=== PATIENT | male | born 1955 | race Caucasian/White ===

== ENCOUNTER → 2019-07-12 14:10 | Outpatient (BNVA) | payer OTHER, SELFPAY | PROVIDERS: Family Provider Family Medicine; PCP Family Medicine; Visit Provider Nurse Practitioner | DX: F33.2 Major depressive disorder, recurrent severe without psychotic features (principal) | CPT/HCPCS: 99213 ==

== ENCOUNTER → 2020-01-03 09:33 | Outpatient (BNVA) | payer OTHER, SELFPAY | PROVIDERS: Family Provider Family Medicine; PCP Family Medicine; Visit Provider Nurse Practitioner | DX: F33.2 Major depressive disorder, recurrent severe without psychotic features (principal) | CPT/HCPCS: 99213 ==

== ENCOUNTER 2020-02-21 20:22 | Observation (INO) | payer OTHER, MEDICARE, SELFPAY ==
[2020-02-21 20:42] VITALS: BP 124/76; PULSE 86; RESP 18; TEMP 36.8; O2SAT 100; BMI 30.8
--- NOTE | 2020-02-21 20:50 | ECG_ITS ---
[facility] Test Date: 2020-02-21 Pat Name: Yue Goddard Department: Room: Gender: Male Cloud Developer: : 1955 Requested By: Faye Gandhi Order Number: [id number] Mitesh MD: Blaine Longo M.D. Measurements Intervals [place] Rate: 89 P: 10 [place]: 160 QRS: 73 QRSD: 107 T: -34 QT: 337 QTc: 411 Interpretive Statements SINUS RHYTHM ST DEVIATION AND MODERATE T-WAVE ABNORMALITY, CONSIDER ANTEROLATERAL ISCHEMIA [-0.1+ mV T WAVE IN V3-V6] Compared to ECG 06/20/2015 10:46:58 Intraventricular conduction delay no longer present T-wave abnormality still present Possible ischemia still present Electronically Signed On 02-22-2020 20:50:27 CDT by Blaine Longo M.D. [id number]
[2020-02-21] MEDS: sodium chloride 0.9% 500 ML 999 ML IV (21:10)
[2020-02-21 21:13] VITALS: BP 112/71; PULSE 77; RESP 18; O2SAT 97
[2020-02-21 21:16] LABS: Basophils # 0.1 10^3/uL (0.0-0.1); Basophils % 0.6 %; Eosinophils # 0.3 10^3/uL (0.0-0.8); Eosinophils % 4.2 %; Hemoglobin 14.8 g/dL (11.7-16.6); Lymphocytes # 1.2 10^3/uL (0.8-4.8); Lymphocytes % 14.1 %; Mean Corpuscular HGB Conc 34.4 g/dL (30.0-36.0); Mean Corpuscular Hemoglobin 32.2 pg (28.0-34.0); Mean Corpuscular Volume 93.5 fL (80-94); Mean Platelet Volume 9.7 fL (7.4-10.4); Monocytes # 0.8 10^3/uL (0.2-0.9); Monocytes % 9.2 %; Neutrophils # 5.83 10^3/uL (1.8-7.7); Neutrophils % 71.7 %; Nucleated Red Blood Cells % 0 %; Platelet Count 164 10^3/cmm (130-400); Red Cell Distribution Width 13.1 % (12.1-15.1); White Blood Count 8.1 10^3/uL (4.0-10.0)
[2020-02-21] MEDS: nitroglycerin 0.4 mg sublingual Tablet SUBLINGUAL ×2 (21:21→22:05)
[2020-02-21] MEDS: aspirin 325 mg Tablet PO (21:23)
[2020-02-21 21:30] VITALS: BP 122/67; PULSE 71; RESP 24; O2SAT 96
[2020-02-21 21:30] LABS: Alanine Aminotransferase 15 U/L (0-41); Albumin Level 4.2 g/dL (3.5-5.2); Alkaline Phosphatase 79 IU/L (40-130); Anion Gap 12.9 (5-19); Aspartate Amino Transferase 13 U/L (0-40); Blood Urea Nitrogen 18 mg/dL (8-23); Calcium 8.5 mg/dL (8.5-10.5); Carbon Dioxide 21 mmol/L (22-29); Chloride 105 mmol/L (98-107); Globulin 1.9 g/dL (1.3-4.6); Glomerular Filtration Rate 28.8 mL/min (90-130); Glucose 117 mg/dL (65-115); Lipase 53 U/L (13-60); Osmolality Calculated 283 mOsm/kg (285-295); Potassium 3.9 mmol/L (3.5-5.1); Sodium 135 mmol/L (136-145); Total Bilirubin 0.3 mg/dL (0.15-1.2); Total Protein 6.1 g/dL (6.6-8.7)
[2020-02-21 21:32] LABS: Troponin(5th) Baseline 8 ng/L (0-15)
[2020-02-21 21:45] LABS: INR 0.98 (0.8-1.2)
[2020-02-21 21:48] LABS: D Dimer 1.69 ug/mIFEU (0-0.59)
[2020-02-21] MEDS: nitroglycerin 0.4 mg sublingual Tablet (22:11)
--- NOTE | 2020-02-21 22:14 | XRR_ITS ---
PROCEDURE INFORMATION: Exam: XR Chest, 1 View Exam date and time: 02/21/2020 10:28 PM Age: 65 years old Clinical indication: Chest pain; Type not specified TECHNIQUE: Imaging protocol: XR of the chest Views: 1 view. COMPARISON: CR Chest 2 views* [id number] 06/20/2015 10:58 AM FINDINGS: Lungs: No lung consolidation or pulmonary edema. Pleural space: No pleural effusion or pneumothorax. Heart/Mediastinum: The cardiac silhouette is not enlarged. The mediastinal contours are normal. Bones/joints: No acute osseous abnormality. XR/XR chest 1V portable [id number] IMPRESSION: No acute abnormality.
[2020-02-21] MEDS: ondansetron 2 mg/ML SDV 2 mL 4 MG IVP (22:15)
[2020-02-21 22:18] VITALS: RESP 16; O2SAT 95
[2020-02-21] MEDS: morphine 4 mg/mL SDV 1 mL IVP (22:18)
[2020-02-21 22:19] VITALS: BP 120/74; PULSE 77; RESP 19; O2SAT 98
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
--- NOTE | 2020-02-21 22:31 | NMR_ITS ---
PROCEDURE INFORMATION: Exam: PR Lung Ventilation and Perfusion Imaging Exam date and time: 02/21/2020 11:21 PM Age: 65 years old Clinical indication: Pain and abnormal findings; Abnormal diagnostic tests; Elevated d-dimer; Left-sided chest pain; Additional info: Chest pain, positive d-dimer TECHNIQUE: Imaging protocol: Nuclear pulmonary ventilation with aerosol or gas was performed followed by perfusion. Views: Ventilation acquired with multiple projections. Perfusion acquired with multiple projections. Radiopharmaceutical: 32.7 mCi DTPA Aersol (Tc-99m DTPA), Inhalation. 5.1 mCi Tc-99m MAA, IV. COMPARISON: CR XR chest 1V portable [id number] 02/21/2020 10:17 PM FINDINGS: Ventilation: No ventilation defects. Perfusion: No perfusion defects. PR/PR pul vent and perfus* [id number] IMPRESSION: PE negative.
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
[2020-02-21 22:42] VITALS: RESP 16; O2SAT 96
[2020-02-21] MEDS: HYDROmorphone 1 mg/mL INJ 1 mL IVP (22:42)
--- NOTE | 2020-02-21 22:50 | ECG_ITS ---
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 Measurements Intervals [place] Rate: 82 P: 17 [place]: 179 QRS: 66 QRSD: 113 T: -81 QT: 383 QTc: 449 Interpretive Statements SINUS RHYTHM MODERATE INTRAVENTRICULAR CONDUCTION DELAY [110+ ms QRS DURATION] ST DEVIATION AND MODERATE T-WAVE ABNORMALITY, CONSIDER ANTEROLATERAL ISCHEMIA [-0.1+ mV T WAVE IN V3-V6] Compared to ECG 02/21/2020 20:41:36 Intraventricular conduction delay now present T-wave abnormality still present Possible ischemia still present Electronically Signed On 02-22-2020 21:39:06 CDT by Blaine Longo M.D. [id number]
[2020-02-21 23:11] LABS: C Reactive Protein 18.8 mg/L (0.0-4.9)
[2020-02-22] VITALS (15 sets, daily range): BP systolic 95–118; BP diastolic 51–71; PULSE 63–77; RESP 12–24; TEMP 36.6–37.3; O2SAT 93–99
[2020-02-22 00:07] LABS: Erythrocyte Sedimentation Rate 12 mm/hr (0-10)
--- NOTE | 2020-02-22 00:41 | PM.HP ---
Providers/Chief Complaint Primary Care Provider: Harley Lewis DO Chief Complaint: sob, cp History of Present Illness Yue Goddard is a 65 year old male nonobstructive CAD, hypertension, hyperlipidemia, aortic regurg, diastolic dysfunction, atypical migraines (passing out spells), chronic tinnitus, who presents to [facility] due to complaints of chest pain. 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 Denies any recent strenuous physical activity or heavy lifting. At roughly 7 PM patient patient was in his recliner, when he developed substernal chest pain, had sharp and dull features, radiating to the back, radiating up in the left neck, radiating into the left shoulder, associate with shortness of breath, lightheadedness, nausea, he says that the pain is slowly and gradually worsened, such that he called his and told her that he needs to go immediately to the emergency room, patient did take a couple of nitroglycerin, without relief, he did get nitroglycerin in the ER and with did not provide any relief, pain improved with Dilaudid and morphine. Currently states that he still has some mild degree of anterior chest pain, radiating to his neck, shoulder and back, mild currently, but slowly creeping back. States that he is never had chest pain like this before. Is a current smoker, his history of hypertension, does have a family history of CAD Review of Systems Const: Denies: fever(s), chills, fatigue or malaise Eyes: Denies: change in vision or blurry vision ENMT: Denies: nasal congestion Card: Reports: chest pain and orthopnea Resp: Reports: dyspnea; Denies: productive cough, non-productive cough or wheezing GI: Denies: abdominal pain, nausea, vomiting, hematemesis, diarrhea, constipation, hematochezia or melena : Denies: flank pain, difficulty urinating, dysuria or urinary frequency Musc: Denies: neck pain or back pain Skin/Breast: Denies: rash Neuro: Denies: headache(s), dizziness or vertigo Psych: Denies: anxiety or depression Endo: Denies: polyuria or polydipsia Medications/Allergies Home Medications Medication Instructions Recorded Confirmed Last Taken Type atorvastatin 20 mg tablet 20 mg PO DAILY 07/12/19 07/28/19 Unknown History aspirin 81 mg tablet,delayed 81 mg PO DAILY 07/24/19 07/28/19 Unknown History release isosorbide mononitrate 30 mg 30 mg PO DAILY 07/24/19 07/28/19 Unknown History tablet,extended release 24 hr magnesium 250 mg tablet 250 mg PO DAILY 07/24/19 07/28/19 Unknown History metoprolol tartrate 25 mg tablet 25 mg PO DAILY 07/24/19 07/28/19 Unknown History multivitamin 1 tab PO DAILY 07/24/19 07/28/19 Unknown History naproxen sodium 220 mg tablet 220 mg PO Q12H 07/24/19 07/28/19 Unknown History nitroglycerin 0.4 mg sublingual 0.4 mg SUBLINGUAL Q5M PRN 07/24/19 07/28/19 Unknown History tablet omega-3 fatty acids 1,000 mg 1,000 mg PO DAILY 07/24/19 07/28/19 Unknown History capsule topiramate 50 mg tablet 50 mg PO TID tab 07/24/19 07/28/19 Unknown History hydroxyzine HCl 50 mg tablet 50 mg PO BID #180 tab 01/03/20 01/03/20 Unknown Rx sertraline 50 mg tablet 50 mg PO DAILY #90 tab 01/03/20 01/03/20 Unknown Rx trazodone 150 mg tablet 150 mg PO .at bed #90 tab 01/03/20 01/03/20 Unknown Rx Allergies Allergy/AdvReac Type Severity Reaction Status Date / Time No Known Allergies Allergy Verified 02/21/20 20:53 PFSH Acute PFSH: Medical History Abdominal aortic aneurysm Anxiety Aortic ectasia, abdominal Aortic regurgitation ASHD (arteriosclerotic heart disease) Carotid artery stenosis Hyperlipidemia Hypertension Major depressive disorder, recurrent severe without psychotic features Migraine Surgical History History of ear surgery History of elbow surgery History of shoulder surgery History of total hip replacement S/P foot surgery, right Family History Other CAD (coronary artery disease) Diabetes Lung disease Stroke Social History Smoking and tobacco status: current every day smoker cigarettes Smoking risk assessment/counseling performed?: Yes Tobacco counseling given: counseling >3 minutes Alcohol intake: never Vitals/I&O/Wt Last Vital Signs Temp 98.2 F 02/21/20 20:42 Pulse 77 02/21/20 22:19 Resp 16 02/21/20 22:42 BP 120/74 02/21/20 22:19 Pulse Ox 96 02/21/20 22:42 Weight last 48 hrs Weight 108.862 kg Physical Exam Const: COMMON NORMALS: no acute distress and patient oriented x3 GENERAL APPEARANCE: cooperative and comfortable HENMT: COMMON NORMALS: normocephalic HEAD & SCALP: normocephalic Eye: COMMON NORMALS: Equal, round and reactive pupils present and EOMs intact bilaterally GENERAL EYE: appearance normal, both eyes and all related structures PUPIL: Yes Equal, round and reactive pupils present Neck/C-Spine: COMMON NORMALS: full ROM, no lymphadenopathy, no JVD and Thyroid normal THYROID: Thyroid normal Lymph: LYMPHATIC: no lymphadenopathy noted Resp: COMMON NORMALS: normal respiratory effort, No retractions, No use of accessory muscles and clear to auscultation bilaterally AUSCULTATION: clear to auscultation bilaterally Cardio: COMMON NORMALS: no JVD, regular rate, regular rhythm, S1 normal heart sound present, S2 normal heart sound present, No gallops present (Cardio), No clicks present (Cardio) and No murmurs present (Cardio) RATE: regular rate RHYTHM: regular rhythm HEART SOUNDS: S1 normal heart sound present and S2 normal heart sound present GI: COMMON NORMALS: Normal to inspection, nondistended, normoactive bowel sounds present, Soft to palpation, non-tender and No hepatosplenomegaly present PALPATION: Yes Soft to palpation and Yes No hepatosplenomegaly present Extremity: COMMON NORMALS: normal to inspection, full ROM and no pedal edema Neuro: COMMON NORMALS: patient oriented x3, CN's II-XII intact bilaterally, moves all extremities and no focal motor deficits Psych: COMMON NORMALS: mental status grossly normal, Normal thought process present and cooperative THOUGHT PROCESS: Normal thought process present Data : 02/21/20 21:08 02/21/20 21:08 A&P Assessment and plan (1) Unstable angina: -Typical chest pain features, chest pain radiating to the left arm, left neck, to the back -EKG does show mild T wave inversions in anterior chest leads -Creatinine is 2.3 -Baseline troponin 8 -Currently no CSU beds, cannot get a nitro drip on the floors Plan: -Admit to [facility] general floor with telemetry -Nitro inch paste -Dilaudid for pain -Aspirin 81 mg daily, atorvastatin 40 mg daily, Coreg 3.125 twice daily -Monitor for chest pain, telemetry monitoring, serial EKGs, serial troponins -If chest pain persist or suddenly worsens will consult cardiology for cardiac catheterization -N.p.o. midnight for cardiac stress test this morning -Full code -Lovenox for DVT prophylaxis Status: Acute (2) Abdominal aortic aneurysm: Status: Acute Qualifiers: Presence of rupture: without rupture Qualified Code(s): I71.4 - Abdominal aortic aneurysm, without rupture (3) ASHD (arteriosclerotic heart disease): Status: Acute (4) Hypertension: Status: Acute Qualifiers: Hypertension type: essential hypertension Qualified Code(s): I10 - Essential (primary) hypertension (5) Hyperlipidemia: Status: Acute Qualifiers: Hyperlipidemia type: mixed hyperlipidemia Qualified Code(s): E78.2 - Mixed hyperlipidemia (6) Aortic regurgitation: Status: Acute Qualifiers: Cardiac valve disease etiology: nonrheumatic Qualified Code(s): I35.1 - Nonrheumatic aortic (valve) insufficiency (7) ISI (acute kidney injury): -He admits to naproxen use daily at bedtime for pain -Hold naproxen, gentle IV hydration Status: Acute Attestations Medical Necessity Statement*: Patient requires hospitalization, outpatient with observation, for chest pain Coding Level of Care Code 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
[2020-02-22] MEDS: nitroglycerin 1 gm/inch oint Pkt 1 INCH TOPICAL (00:50)
[2020-02-22 01:16] LABS: Troponin 5 2HR 8.72 ng/L (0-15); Troponin 5 2HR Delta 0.72 ABS# (0-10)
--- NOTE | 2020-02-22 01:40 | ECG_ITS ---
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 Measurements Intervals [place] Rate: 68 P: 20 [place]: 176 QRS: 39 QRSD: 109 T: 197 QT: 420 QTc: 447 Interpretive Statements SINUS RHYTHM ST DEVIATION AND MODERATE T-WAVE ABNORMALITY, CONSIDER ANTEROLATERAL ISCHEMIA [-0.1+ mV T WAVE IN V3-V6] Compared to ECG 02/21/2020 22:30:10 Intraventricular conduction delay no longer present T-wave abnormality still present Possible ischemia still present Electronically Signed On 02-22-2020 21:25:10 CDT by Blaine Longo M.D. [id number]
[2020-02-22] MEDS: HYDROmorphone 1 mg/mL INJ 1 mL IVP (01:46)
[2020-02-22] MEDS: sodium chloride 0.9% 1,000 ML 75 ML IV (03:01)
[2020-02-22] MEDS: enoxaparin 120 mg/0.8 mL Syringe 110 MG SUBCUT ×2 (03:01→15:11)
--- NOTE | 2020-02-22 03:18 | PC.NURSE ---
Patient arrived from the ED via wheel chair. Ambulated to the bed, with no issues. Patient appeared to be in good spirits despite condition.
[2020-02-22 03:56] LABS: Troponin 5 6HR 9.02 ng/L (0-15); Troponin 5 6HR Delta 1.02 ng/L (0-12)
--- NOTE | 2020-02-22 05:09 | ECG_ITS ---
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 Measurements Intervals [place] Rate: 69 P: 33 DC: 179 QRS: 59 QRSD: 112 T: 26 QT: 386 QTc: 415 Interpretive Statements SINUS RHYTHM MODERATE INTRAVENTRICULAR CONDUCTION DELAY [110+ ms QRS DURATION] ST DEVIATION AND MODERATE T-WAVE ABNORMALITY, CONSIDER LATERAL ISCHEMIA [-0.1+ mV T WAVE IN I/aVL/V5/V6] WARNING: DATA QUALITY MAY AFFECT INTERPRETATION Compared to ECG 02/22/2020 01:52:59 Intraventricular conduction delay now present T-wave abnormality still present Possible ischemia still present Electronically Signed On 02-22-2020 21:32:01 CDT by Blaine Longo M.D. [id number] f
[2020-02-22] MEDS: HYDROmorphone 1 mg/mL INJ 1 mL 0.5 MG IVP (05:43)
[2020-02-22] MEDS: lactated ringers 1,000 ML 999 ML IV (05:46)
--- NOTE | 2020-02-22 06:06 | USCV_ITS ---
Yue Goddard Age: 65 Gender: M : 1955 Exam Date: 02/22/2020 06:41 Ordering Phys: Vinay Augustine MD Technologist: Rosemarie Ramirez Exam Location: [facility] [place] Indication: CHEST PAIN BP: 95 / 58 HR: 65 Rhythm: Sinus Technical Quality: Adequate MEASUREMENTS (Male / Female) Normal Values 2D ECHO LV Diastolic Diameter PLAX 4.3 cm 4.2 - 5.9 / 3.9 - 5.3 cm LV Systolic Diameter PLAX 3.0 cm LV Chamber Size 3.8 cm IVS Diastolic Thickness 1.5 cm 0.6 - 1.0 / 0.6 - 0.9 cm IVS Systolic Thickness 1.5 cm LVPW Diastolic Thickness 1.8 cm 0.6 - 1.0 / 0.6 - 0.9 cm LVPW Systolic Thickness 2.1 cm RV Chamber Size 3.2 cm LVOT Diameter 2.0 cm LV Ejection Fraction 2D Teich 60.0 % LV Ejection Fraction MOD 2C 64.3 % LV Ejection Fraction 2C AL 64.1 % LA Diameter 3.7 cm LA Width 3.0 cm LA Height 4.7 cm RA Width 3.1 cm RA Height 4.1 cm Aorta at Sinotubular Diameter 3.2 cm M-MODE LV Diastolic Diameter MM 4.9 cm 4.2 - 5.9 / 3.9 - 5.3 cm LV Systolic Diameter MM 2.9 cm LV Ejection Fraction MM Teich 72.3 % IVS Diastolic Thickness MM 1.2 cm 0.6 - 1.0 / 0.6 - 0.9 cm IVS Systolic Thickness MM 1.7 cm LVPW Diastolic Thickness MM 1.5 cm 0.6 - 1.0 / 0.6 - 0.9 cm LVPW Systolic Thickness MM 1.9 cm Aortic Annulus Diameter 3.2 cm LA Ao Ratio MM 1.4 MV E Point Septal Separation 0.8 cm DOPPLER AV Peak Velocity 137.0 cm/s LVOT Peak Velocity 114.0 cm/s AV Area Cont Eq vti 3.5 cm squared AV Area Cont Eq pk 2.6 cm squared MV Area PHT 5.5 cm squared Mitral E to A Ratio 0.8 MV E' Velocity 42.0 cm/s Mitral E to MV E' Ratio 5.3 Mitral E to LV E' Lateral Ratio 5.3 Mitral E to LV E' Septal Ratio 5.4 TR Peak Velocity 233.0 cm/s TR Peak Gradient 21.7 mmHg TV Peak E Velocity 67.0 cm/s Right Atrial Pressure 3.0 mmHg Pulmonary Artery Systolic Pressu 24.7 mmHg PV Peak Velocity 63.0 cm/s RV Acceleration Time 0.1 s RV Ejection Time 0.4 s RV AcT/ET 0.4 FINDINGS Left Ventricle Normal left ventricular size and systolic function, EF 61 %. Mild left ventricular hypertrophy. No regional wall motion abnormalities. Grade I/IV diastolic dysfunction (abnormal relaxation filling pattern), normal to mildly elevated filling pressures. Right Ventricle The right ventricle is normal in size and function. Right Atrium The right atrium is normal in size. Left Atrium The left atrium is normal in size. Mitral Valve No gross abnormalities noted Aortic Valve Mild aortic valve regurgitation. Tricuspid Valve No tricuspid valve stenosis. Pulmonic Valve Pulmonic valve not well visualized. Pericardium Normal pericardium without effusion. Aorta The ascending aorta measured at 4.1 cm above the sinuses CONCLUSIONS Normal left ventricular size and systolic function, EF 61 %. Mild left ventricular hypertrophy. No regional wall motion abnormalities. Grade I/IV diastolic dysfunction (abnormal relaxation filling pattern), normal to mildly elevated filling pressures. Mild aortic valve regurgitation. There is no pericardial effusion. There are no intracardiac masses. The ascending aorta measured at 4.1 cm above the level of the sinuses. Compared to the previous study from 08/10/2017, there may not be a significant change Dr Blaine Longo MD [facility] (Electronically Signed) Final Date: 22 February 2020 15:35 S
--- NOTE | 2020-02-22 06:32 | PC.NURSE ---
Patient has mainly been resting since he arrived on the unit. He has complained about chest pain, back pain, and a head ache.
--- NOTE | 2020-02-22 07:36 | PM.CONSULT ---
Providers/Reason For Consult Consulting Physican/Specialty*: Leti Longo MD/cardiology Reason for Consult*: Patient with chest pain and multiple risk factors for coronary artery disease Attending Physician: Jose Raul Guillaume Primary Care Provider: Harley Lewis DO History of Present Illness History of Present Illness Yue Goddard is a 65 year old male is admitted to hospital through the emergency room, where he presented with complaints of chest pain. Apparently the patient has been in his baseline state of health up until 730 last night, while he was watching TV, started having pain in the left inframammary region. The pain was mild to begin with. Gradually the intensity of the pain got worse. He also has had the pain radiating to the left side of the neck, left shoulder and also to the left upper arm. Had initially the pain went up to 8/10. He did not have any associated nausea vomiting sweating palpitation or any other symptoms. No other radiation. He took a total of 2 sublingual nitro. Since there was no relief, he was brought to the emergency room by his . In the emergency room, he was given more sublingual nitro and was placed on a nitro paste. Apparently these measures did not relieve the pain. He responded to the pain with the Dilaudid. He has some relief of pain. At the time of my examination, the intensity of the pain is 4/10. The pain gets worse with the chest wall movements. He also has some local tenderness in the left infra mammary region. He had a VQ scan yesterday and was of low probability. His d-dimer was slightly elevated but did not his creatinine was found to be 2.3 with a GFR of 28.8. Patient is known to have high blood pressure, dyslipidemia, aortic regurgitation. He had a cardiac catheterization in 2016 and was found to have mild coronary artery disease. He had some chest pains off and on for the last few years. But he never had pain severe enough to come to the hospital. Review of Systems Narrative: CONSTITUTIONAL: No fever or chills. EYES: No blurring of vision or other visual disturbances lately. ENT: No hoarseness of voice, auditory disturbances or sore throat. CARDIOVASCULAR: As mentioned above. RESPIRATORY: No significant cough. GASTROINTESTINAL: No hematemesis or melena. GENITOURINARY: No dysuria or hematuria. INTEGUMENTARY: No skin rashes or history of skin cancer. NEURO: No transient ischemic attacks or amaurosis. PSYCHIATRIC: No history of psychosis or major depression. HEMATOLOGIC: No bleeding disorders or significant anemia. ENDOCRINE: No history of polyuria or polydipsia. MUSCULOSKELETAL: No recent joint pain or swelling. ALLERGY/IMMUNOLOGY: As mentioned above. Meds/Allergies Home Medications and Allergies Home Medications Medication Instructions Recorded Confirmed Last Taken Type atorvastatin 20 mg tablet 20 mg PO DAILY 07/12/19 02/22/20 Unknown History aspirin 81 mg tablet,delayed 81 mg PO DAILY 07/24/19 02/22/20 Unknown History release metoprolol tartrate 25 mg tablet 25 mg PO DAILY 07/24/19 02/22/20 Unknown History multivitamin 1 tab PO DAILY 07/24/19 02/22/20 Unknown History naproxen sodium 220 mg tablet 440 mg PO DAILY 07/24/19 02/22/20 Unknown History nitroglycerin 0.4 mg sublingual 0.4 mg SUBLINGUAL Q5M PRN 07/24/19 02/22/20 Unknown History tablet topiramate 50 mg tablet 150 mg PO DAILY tab 07/24/19 02/22/20 Unknown History sertraline 50 mg tablet 50 mg PO DAILY #90 tab 01/03/20 02/22/20 Unknown Rx trazodone 150 mg tablet 150 mg PO .at bed #90 tab 01/03/20 02/22/20 Unknown Rx hydroxyzine HCl 50 mg PO BID PRN 02/22/20 02/22/20 Unknown History Allergies Allergy/AdvReac Type Severity Reaction Status Date / Time No Known Allergies Allergy Verified 02/21/20 20:53 Current Medications Current Medications Generic Name Dose Route Start Last Admin Trade Name Freq PRN Reason Stop Dose Admin Enoxaparin Sodium 110 mg 02/22/20 02:30 02/22/20 03:01 Lovenox SUBCUT 110 mg Q12H RADHA Administration Hydromorphone HCl 0.5 mg 02/22/20 02:23 02/22/20 05:43 Dilaudid Inj IVP 0.5 mg Q4H PRN Administration pain Sodium Chloride 1,000 mls @ 75 mls/hr 02/22/20 02:23 02/22/20 03:01 Sodium Chloride 0.9% IV 75 mls/hr .[id number] RADHA Administration Nitroglycerin 0.4 mg 02/21/20 21:17 02/21/20 22:05 Nitrostat SUBLINGUAL 1 tab Q5M PRN Administration CHEST PAIN PFSH Acute PFSH: Medical History (Updated 02/22/20 @ 08:45 by Blaine Longo MD) Abdominal aortic aneurysm Anxiety Aortic ectasia, abdominal Aortic regurgitation ASHD (arteriosclerotic heart disease) Atypical chest pain Carotid artery stenosis Hyperlipidemia Hypertension Major depressive disorder, recurrent severe without psychotic features Migraine Surgical History History of ear surgery History of elbow surgery History of shoulder surgery History of total hip replacement S/P foot surgery, right Family History Other CAD (coronary artery disease) Diabetes Lung disease Stroke Social History Smoking and tobacco status: current every day smoker cigarettes Smoking risk assessment/counseling performed?: Yes Tobacco counseling given: counseling >3 minutes Alcohol intake: never Vitals/I&O/Wt Last Vital Signs Temp 98.5 F 02/22/20 04:00 Pulse 67 02/22/20 04:00 Resp 18 02/22/20 05:43 BP 95/58 02/22/20 04:00 Pulse Ox 97 02/22/20 04:00 Weight last 48 hrs Weight 240 lb Physical Exam Narrative: EXAM NARRATIVE: GENERAL: The patient is alert and oriented times three. Not in any acute distress. HEENT: No significant pallor, icterus or lymphadenopathy. The pupils are reactant to light. Oral cavity: There are no mucous membrane lesions. Funduscopic examination: The fundus is not visualized. NECK: Trachea appears to be central. No masses noted. No JVD or thyromegaly appreciated. Carotid bruit on the left side. RESPIRATORY: Chest is symmetrical. No intercostals muscle retraction or any accessory muscle activation. Minimal tenderness in the left inframammary region.. Breath sounds are heard bilaterally. No rales or rhonchi heard. No evidence of any consolidation. BREASTS: Deferred. HEART: The PMI could not be palpated. No palpable precordial events. S1 and S2 are normal. No S3 or S4 heard. No pericardial rub or any click heard. Short systolic murmur in the left sternal border. No diastolic murmurs. ABDOMEN: No vessel pulsations or distention. No tenderness. No organomegaly appreciated. No abdominal bruit. Bowel sounds are normally heard. : Deferred. RECTAL: Deferred. LYMPHATIC: No lymphadenopathy noted in the neck or groin. EXTREMITIES: No edema or cyanosis. No clubbing. The pulses are symmetrical bilaterally. The radial, femoral, dorsalis pedis and the posterior tibial pulses are palpated and found to be in good volume and amplitude. MUSCULOSKELETAL: Gait is normal. There is no joint deformity or swelling noted. No joint tenderness or any effusion. The shoulder and hip joints appear to have normal range of motion. SKIN: There are no significant scars or skin rash noted. NEUROPSYCHIATRIC: The patient is alert and oriented x3. Appears to be in a good mood. The higher functions are grossly within normal limits. No tremors or rigidity noted. Data Labs: Other Labs: Laboratory Last Values WBC 8.1 10^3/uL (4.0- 10.0) 02/21/20 21:08 RBC 4.60 10^6/uL (4.1 -5.3) 02/21/20 21:08 Hgb 14.8 g/dL (11.7-1 6.6) 02/21/20 21:08 Hct 43.0 % (42.0-52.0 ) 02/21/20 21:08 MCV 93.5 fL (80-94) 02/21/20 21:08 MCH 32.2 pg (28.0-34. 0) 02/21/20 21:08 MCHC 34.4 g/dL (30.0-3 6.0) 02/21/20 21:08 RDW 13.1 % (12.1-15.1 ) 02/21/20 21:08 Plt Count 164 10^3/cmm (130 -400) 02/21/20 21:08 MPV 9.7 fL (7.4-10.4) 02/21/20 21:08 Neut % (Auto) 71.7 % 02/21/20 21:08 Lymph % (Auto) 14.1 % 02/21/20 21:08 Assumption % (Auto) 9.2 % 02/21/20 21:08 Eos % (Auto) 4.2 % 02/21/20 21:08 Baso % (Auto) 0.6 % 02/21/20 21:08 Neut # (Auto) 5.83 10^3/uL (1.8 -7.7) 02/21/20 21:08 Lymph # (Auto) 1.2 10^3/uL (0.8- 4.8) 02/21/20 21:08 Assumption # (Auto) 0.8 10^3/uL (0.2- 0.9) 02/21/20 21:08 Eos # (Auto) 0.3 10^3/uL (0.0- 0.8) 02/21/20 21:08 Baso # (Auto) 0.1 10^3/uL (0.0- 0.1) 02/21/20 21:08 Nucleated RBC % (a uto) 0 % 02/21/20 21:08 Nucleated RBCs # 0.0 /100WBC 02/21/20 21:08 ESR 12 mm/hr (0-10) H 02/21/20 21:08 PT 13.20 SECONDS (12 .1-14.9) 02/21/20 21:08 INR 0.98 (0.8-1.2) 02/21/20 21:08 D-Dimer 1.69 ug/mIFEU (0- 0.59) H 02/21/20 21:08 Sodium 135 mmol/L (136-1 45) L 02/21/20 21:08 Potassium 3.9 mmol/L (3.5-5 .1) 02/21/20 21:08 Chloride 105 mmol/L (98-10 7) 02/21/20 21:08 Carbon Dioxide 21 mmol/L (22-29) L 02/21/20 21:08 Anion Gap 12.9 (5-19) 02/21/20 21:08 BUN 18 mg/dL (8-23) 02/21/20 21:08 Creatinine 2.3 mg/dL (0.7-1. 2) H 02/21/20 21:08 GFR Calculation 28.8 mL/min (90-1 30) L 02/21/20 21:08 Glucose 117 mg/dL (65-115 ) H 02/21/20 21:08 Calculated Osmolal ity 283 mOsm/kg (285- 295) L 02/21/20 21:08 Calcium 8.5 mg/dL (8.5-10 .5) 02/21/20 21:08 Total Bilirubin 0.3 mg/dL (0.15-1 .2) 02/21/20 21:08 AST 13 U/L (0-40) 02/21/20 21:08 ALT 15 U/L (0-41) 02/21/20 21:08 Alkaline Phosphata se 79 IU/L (40-130) 02/21/20 21:08 Troponin T Baselin e 8 ng/L (0-15) 02/21/20 21:08 Troponin T 120 Min [place] 8.72 ng/L (0-15) 02/22/20 00:45 Delta Troponin T 0.72 ABS# (0-10) 02/22/20 00:45 Troponin T Hi Sens 6Hr 9.02 ng/L (0-15) 02/22/20 02:55 Troponin T Hi Sens 6Hr Delta 1.02 ng/L (0-12) 02/22/20 02:55 C-Reactive Protein 18.8 mg/L (0.0-4. 9) H 02/21/20 21:08 Total Protein 6.1 g/dL (6.6-8.7 ) L 02/21/20 21:08 Albumin 4.2 g/dL (3.5-5.2 ) 02/21/20 21:08 Globulin 1.9 g/dL (1.3-4.6 ) 02/21/20 21:08 Lipase 53 U/L (13-60) 02/21/20 21:08 A&P Assessment and plan (1) Atypical chest pain: Patient chest pain, possibly musculoskeletal in origin. He has no evidence of any myocardial injury so far. The EKG changes are nonspecific and chronic. No acute ST-T changes. In view of his history of mild coronary artery disease and multiple risk factors, it may be appropriate to do a myocardial perfusion imaging, to further evaluate his symptoms. Since that he had a VQ scan last night, he will not be able to have the myocardial perfusion imaging today. For the time being, he may be treated for the musculoskeletal pain. If his symptoms improve, he may be discharged home and have the myocardial perfusion imaging as an outpatient. Status: Acute (2) ISI (acute kidney injury): Etiology is unclear. This needs to be further evaluated. Status: Acute (3) Aortic ectasia, abdominal: Patient is asymptomatic and probably reasons require any specific intervention at this point. Status: Acute (4) Hypertension: Currently he is still somewhat hypotensive. I may discontinue the Nitropaste at this time. Other medications may be continued. Status: Acute Qualifiers: Hypertension type: essential hypertension Qualified Code(s): I10 - Essential (primary) hypertension (5) Hyperlipidemia: May continue on the current medications. Status: Acute Qualifiers: Hyperlipidemia type: mixed hyperlipidemia Qualified Code(s): E78.2 - Mixed hyperlipidemia (6) Aortic regurgitation: Patient had an echocardiogram this morning. I will be reviewing the echocardiogram. Status: Acute Qualifiers: Cardiac valve disease etiology: nonrheumatic Qualified Code(s): I35.1 - Nonrheumatic aortic (valve) insufficiency (7) Carotid artery stenosis: We will go ahead and do a carotid Doppler examination, to further evaluate. He has a significant bruit on the left side. Status: Acute Qualifiers: Laterality: bilateral Qualified Code(s): I65.23 - Occlusion and stenosis of bilateral carotid arteries Additional A&P Information After reviewing the above and also based on the patient's clinical progress, further recommendations will be made. Thank you for the opportunity to evaluate this patient and make these recommendations. Coding Level of Care Code Acute Certified Neurodiagnostic Technologist for [facility] Fwd Diagnoses Atypical chest pain R07.89 ISI (acute kidney injury) N17.9 Aortic ectasia, abdominal I77.811 Hypertension I10 Hypertension type: essential hypertension Hyperlipidemia E78.2 Hyperlipidemia type: mixed hyperlipidemia Aortic regurgitation I35.1 Cardiac valve disease etiology: nonrheumatic Carotid artery stenosis I65.23 Laterality: bilateral
--- NOTE | 2020-02-22 08:28 | PC.NURSE ---
I reported the low bp to the nurse. 97/51
--- NOTE | 2020-02-22 09:24 | USCV_ITS ---
Yue Goddard Age: 65 Gender: M : 1955 Exam Date: 02/22/2020 14:13 Ordering Phys: Blaine Longo MD ([email or web address]) Technologist: Thalia Walters Exam Location: [facility] – [place] Indication: Carotid Bruit Risk Factors: Previous Vascular Surgery: Right Brachial BP: / Left Brachial BP: / Right Left Velocity (cm/s) Spectral Plaque Velocity (cm/s) Spectral Plaque Syst/Diast Broadening Syst/Diast Broadening 99.20/ 18.70 Prox CCA 84.20 / 15.10 79.90/ 13.80 Mid CCA 85.20 / 19.90 122.20/19.70 Distal CCA 89.90 / 21.80 133.10/23.20 Prox ICA 133.30/ 20.40 77.60/ 24.60 Mid ICA 98.60 / 27.50 73.80/ 23.80 Distal ICA 69.20 / 25.00 178.00 ECA 207.40 1.67 ICA/CCA 1.57 Antegrade Vertebral Antegrade 48.40/ 12.70 cm/s 70.20/ 21.10 cm/s Tri Subclavian Tri 152.0 122.6 0 0 FINDINGS Moderate to heavy heterogeneous plaques at the bifurcations bilaterally Intimal thickening in the common carotid arteries bilaterally Antegrade flow in the vertebral arteries bilaterally Elevated velocity in the left external carotid artery CONCLUSIONS Moderate to heavy heterogeneous plaques at the bifurcations and proximal renal carotid arteries bilaterally with velocity elevation consistent with 50-79% stenosis. Elevated velocity in the external carotid artery on the left side, suggestive of hemodynamically significant stenosis. Intimal thickening in the common carotid arteries bilaterally No similar previous studies are available for comparison Dr Blaine Longo MD [facility] (Electronically Signed) Final Date: 23 February 2020 14:20 S
[2020-02-22] MEDS: sertraline 50 mg Tablet PO (09:28)
[2020-02-22] MEDS: aspirin 81 mg EC Tablet PO (09:28)
[2020-02-22] MEDS: atorvastatin 40 mg Tablet PO (09:28)
[2020-02-22] MEDS: topiramate 25 mg Tablet 50 MG PO ×3 (09:28→21:26)
--- NOTE | 2020-02-22 09:49 | PC.RESP ---
SMOKING CESSATION INFORMATION SENT TO PATIENT.
--- NOTE | 2020-02-22 11:31 | XR_ITS ---
WS: [id number] XR ribs LT 2V* [id number] REASON FOR EXAM: pleuritic pain, hx rib injury FINDINGS: No focal bony abnormality identified. XR/XR ribs LT 2V* [id number] IMPRESSION: Negative rib series. No abnormality of the ribs is identified on the CT scan of the chest the prior day.
--- NOTE | 2020-02-22 11:37 | P.PN_ITS ---
Subjective Subjective: Interval history: He is still having some left-sided discomfort. He denies any recent trauma, exertion, has not had any significant cough. Does feel that the discomfort is worse when he takes a deep breath. Still, there is persistent, gnawing sensation. Vitals/I&O/Wt Last Vital Signs Temp 98.2 F 02/22/20 08:00 Pulse 74 02/22/20 11:20 Resp 14 02/22/20 08:00 BP 102/60 02/22/20 11:00 Pulse Ox 93 02/22/20 11:20 02/21/20 02/22/20 02/22/20 22:59 06:59 14:59 Intake Total 720 / 720 Output Total 1450 / 1450 Balance -730 / -730 Weight last 48 hrs Weight 108.862 kg Physical Exam Const: COMMON NORMALS: no acute distress and patient oriented x3 HENMT: COMMON NORMALS: oropharynx normal Neck/C-Spine: COMMON NORMALS: no JVD Resp: COMMON NORMALS: normal respiratory effort and clear to auscultation bilaterally AUSCULTATION: clear to auscultation bilaterally Cardio: COMMON NORMALS: no JVD, regular rhythm, S1 normal heart sound present, S2 normal heart sound present and No murmurs present (Cardio) RHYTHM: regular rhythm HEART SOUNDS: S1 normal heart sound present and S2 normal heart sound present GI: COMMON NORMALS: Normal to inspection, nondistended, normoactive bowel sounds present, Soft to palpation and non-tender PALPATION: Yes Soft to palpation Extremity: COMMON NORMALS: no joint enlargement and no pedal edema Neuro: COMMON NORMALS: patient oriented x3 and moves all extremities Skin: COMMON NORMALS: no rashes or lesions noted GENERAL SKIN EXAM: no rashes or lesions noted Data : 02/21/20 21:08 02/21/20 21:08 A&P Assessment and plan (1) Unstable angina: Persistent discomfort in the left side of the chest. This is discussed with him and per cardiology assessment appears to be more like musculoskeletal pain, especially it is worse with taking deep inspiration, however, due to persistent sensation and risk factors will go ahead and schedule him for stress testing tomorrow. This could not be performed today due to nuclear pulmonary assessment. He does report some old left side rib injury with a displaced rib after a sneeze while turning to the left side. We will go ahead and obtain rib series x-ray. Add incentive spirometer. Otherwise continue coronary disease medications and treatment for possible unstable angina. Status: Acute (2) ISI (acute kidney injury): Discussed with him acute kidney injury on chronic kidney disease. Discussed avoidance of NSAIDs going forward. He said that he thought that Tylenol was the one that could be bad for his kidneys. Did not realize that NSAIDs could lead to kidney injury. Says that he will avoid in the future. Recheck renal function. Hold additional IV hydration for now. Status: Acute (3) Abdominal aortic aneurysm: Status: Acute Qualifiers: Presence of rupture: without rupture Qualified Code(s): I71.4 - Abdominal aortic aneurysm, without rupture (4) ASHD (arteriosclerotic heart disease): Status: Acute (5) Hypertension: Status: Acute Qualifiers: Hypertension type: essential hypertension Qualified Code(s): I10 - Essential (primary) hypertension (6) Hyperlipidemia: Status: Acute Qualifiers: Hyperlipidemia type: mixed hyperlipidemia Qualified Code(s): E78.2 - Mixed hyperlipidemia (7) Aortic regurgitation: Status: Acute Qualifiers: Cardiac valve disease etiology: nonrheumatic Qualified Code(s): I35.1 - Nonrheumatic aortic (valve) insufficiency Attestations Medical Necessity Statement*: Continue hospitalization for assessment of management of chest pain, unstable angina, acute kidney injury on chronic kidney disease. Coding Level of Care Code Acute Business English Instructor for [facility] Fwd Diagnoses Unstable angina I20.0 ISI (acute kidney injury) N17.9 Abdominal aortic aneurysm I71.4 Presence of rupture: without rupture ASHD (arteriosclerotic heart disease) I25.10 Hypertension I10 Hypertension type: essential hypertension Hyperlipidemia E78.2 Hyperlipidemia type: mixed hyperlipidemia Aortic regurgitation I35.1 Cardiac valve disease etiology: nonrheumatic
[2020-02-22] MEDS: metoprolol tartrate 25 mg Tablet 12.5 MG PO (12:08)
--- NOTE | 2020-02-22 13:25 | PC.NURSE ---
Consent signed for stress test 02/23/2020. EMILYW, BASKET WEAVER
[2020-02-22 14:14] LABS: Anion Gap 13.9 (5-19); Blood Urea Nitrogen 16 mg/dL (8-23); Carbon Dioxide 23 mmol/L (22-29); Chloride 107 mmol/L (98-107); Glomerular Filtration Rate 43.7 mL/min (90-130); Glucose 93 mg/dL (65-115); Osmolality Calculated 291 mOsm/kg (285-295); Potassium 3.9 mmol/L (3.5-5.1); Sodium 140 mmol/L (136-145)
[2020-02-22] MEDS: trazodone 150 mg Tablet PO (21:25)
--- NOTE | 2020-02-23 | NMCV_ITS ---
NM merced perf SPECT r/s* [id number] Yue Goddard Age: 65 Gender: M : 1955 Exam Date: 02/23/2020 Ordering Phys: Jose Raul Guillaume MD Technologist: MYA Varela Exam Location: [facility] Indications: SOB, CP STRESS TEST Please see separate stress test report in [facility] for full findings IMAGE PROTOCOL Rest/Stress 1 Lexiscan Day Radiopharmaceutical Dose (mCi) Administration Site Administered by Rest: Tc-99m 10.9 IV MYA Pillai Sestamibi Stress:Tc-99m 32.8 IV MYA Pillai Sestamibi Rest: 23-Feb-2020 60 Discovery 630 Stress: 23-Feb-2020 30 Discovery 630 0.4mg Lexiscan. Images obtained in supine and prone position. SPECT RESULTS Technical Quality: Excellent Raw Data Analysis: Normal Image Corrections: No attenuation or motion correction applied Summed Stress Score: 2 Summed Rest Score: 0 Summed Difference Score: 2 PERFUSION FINDINGS Small area of moderately decreased tracer uptake in the mid inferolateral region with significant reversibility, based on the supine imaging. However with the prone SPECT imaging, no significant reversibility was noted FUNCTIONAL RESULTS (calculated via Gated SPECT) Stress Image LV EF (%): 77 Stress EDV (mL):105 TID: 1.16 Stress ESV (mL):24 FUNCTIONAL FINDINGS: Segmental wall motion analysis revealing no gross wall motion normalities IMPRESSIONS 1. Myocardial perfusion may revealing a small area of reversible defect in the mid inferolateral region, suggestive of ischemia in the distribution of the left circumflex artery. 2. Normal LV ejection fraction of 77%. 3. LV wall motion analysis revealing no gross wall motion normalities. 4. Normal LV volume. Slightly elevated transient ischemic dilatation ratio of 1.16 also may suggest endocardial ischemia. Because of the inconsistency with the prone imaging, the reliability of the above finding is somewhat questionable Dr Blaine Longo MD FAC (Electronically Signed) Final Date: 23 February 2020 13:16 S
[2020-02-23] MEDS: enoxaparin 120 mg/0.8 mL Syringe 110 MG SUBCUT (01:29)
[2020-02-23 03:33] VITALS: BP 113/54; PULSE 66; RESP 12; TEMP 36.8; O2SAT 96
[2020-02-23 05:45] LABS: Basophils % 0.7 %; Eosinophils # 0.3 10^3/uL (0.0-0.8); Eosinophils % 4.4 %; Hematocrit 38.6 % (42.0-52.0); Hemoglobin 12.6 g/dL (11.7-16.6); Lymphocytes # 1.3 10^3/uL (0.8-4.8); Lymphocytes % 23.6 %; Mean Corpuscular HGB Conc 32.6 g/dL (30.0-36.0); Monocytes # 0.8 10^3/uL (0.2-0.9); Monocytes % 13.7 %; Neutrophils # 3.23 10^3/uL (1.8-7.7); Neutrophils % 57.2 %; Nucleated Red Blood Cells % 0 %; Platelet Count 122 10^3/cmm (130-400); Red Blood Count 3.94 10^6/uL (4.1-5.3); Red Cell Distribution Width 12.9 % (12.1-15.1); White Blood Count 5.6 10^3/uL (4.0-10.0)
--- NOTE | 2020-02-23 06:00 | ECG_ITS ---
[facility] Test Date: 2020-02-23 Pat Name: Yue Goddard Department: Room: 261 Gender: Male Power Regulator: : 1955 Requested By: Vinay Augustine Order Number: [id number] Mitesh MD: Clarence Starr M.D. Interpretive Statements NAME OF STUDY: LEXISCAN SESTAMIBI STRESS TEST INDICATION: [Chest Pain] Procedure: At the baseline the blood pressure was 147/77 mmHg, with a heart rate of 69 bpm. The electrocardiogram showed normal sinus rhythm, normal axis with normal ST and T's. The Lexiscan was infused over the period Of 20 seconds. A total of 0.4 mg of Lexiscan was infused. The stress phase was continued for a total of 5 minutes. Heart rate at the end of stress phase was 82 bpm, with a blood pressure of 111/65 mmHg. The EKG at the peak infusion revealed sinus rhythm with no significant ST-T wave changes. Sestamibi was injected 20 seconds after Lexiscan infusion. Blood pressure at the end of recovery phase was 108/65 mmHg, with a heart rate of 75 bpm. EKG showed sinus rhythm without significant ST???T wave changes. Conclusion: 1. Normal EKG response to Lexiscan infusion. 2. No Lexiscan induced chest pain or cardiac arrhythmia. 3. Normal blood pressure and heart rate response. 4. Sestamibi/sestamibi perfusion scan pending; see separate report. Electronically Signed On 03-03-2020 20:02:02 CDT by Clarence Starr M.D. [email or web address]
[2020-02-23 06:20] LABS: Alanine Aminotransferase 9 U/L (0-41); Albumin Level 3.1 g/dL (3.5-5.2); Alkaline Phosphatase 58 IU/L (40-130); Anion Gap 15.8 (5-19); Aspartate Amino Transferase 10 U/L (0-40); Blood Urea Nitrogen 14 mg/dL (8-23); Calcium 8.7 mg/dL (8.5-10.5); Carbon Dioxide 16 mmol/L (22-29); Chloride 113 mmol/L (98-107); Globulin 2.5 g/dL (1.3-4.6); Glucose 93 mg/dL (65-115); Magnesium 2.3 mg/dL (1.7-2.3); Osmolality Calculated 292 mOsm/kg (285-295); Phosphorus 2.6 mg/dL (2.5-4.5); Potassium 3.8 mmol/L (3.5-5.1); Sodium 141 mmol/L (136-145); Total Bilirubin 0.5 mg/dL (0.15-1.2); Total Protein 5.6 g/dL (6.6-8.7)
[2020-02-23] MEDS: regadenoson 0.4 Mg/5 ml Syringe IVP (07:50)
[2020-02-23 08:05] VITALS: BP 108/65; PULSE 78
[2020-02-23] MEDS: topiramate 25 mg Tablet 50 MG PO ×2 (10:14→15:26)
[2020-02-23] MEDS: metoprolol tartrate 25 mg Tablet PO (10:15)
[2020-02-23] MEDS: aspirin 81 mg EC Tablet PO (10:15)
[2020-02-23] MEDS: sertraline 50 mg Tablet PO (10:15)
[2020-02-23] MEDS: atorvastatin 40 mg Tablet PO (10:15)
[2020-02-23 11:47] VITALS: BP 105/63; PULSE 56; RESP 15; TEMP 37.1; O2SAT 96
[2020-02-23 11:56] VITALS: PULSE 67; RESP 16; O2SAT 97
--- NOTE | 2020-02-23 13:18 | P.PN_ITS ---
Subjective Subjective: Interval history: The patient is feeling much better. He is still having some pain in the left inframammary region with deep inspiration or at times when he is trying to lie on that side. He had a myocardial perfusion imaging today. He was found to have a small area of inconsistent reversible defect in the mid inferolateral region, suggestive of ischemia in the distrib ution of the left circumflex artery. Medications: Reviewed: Yes Medication Review Details: Current Medications Aminophylline (Aminophylline) 25 mg IVP Q2M PRN PRN Reason: see dose instructions Stop: 02/24/20 06:11 Aspirin (Aspirin Ec) 81 mg PO DAILY [facility] Last Admin: 02/23/20 10:15 Dose: 81 mg Documented by: Atorvastatin Calcium (Lipitor) 40 mg PO DAILY [facility] Last Admin: 02/23/20 10:15 Dose: 40 mg Documented by: Enoxaparin Sodium (Lovenox) 110 mg SUBCUT Q12H [facility] Last Admin: 02/23/20 01:29 Dose: 110 mg Documented by: Hydromorphone HCl (Dilaudid Inj) 0.5 mg IVP Q4H PRN PRN Reason: pain Last Admin: 02/22/20 05:43 Dose: 0.5 mg Documented by: Sodium Chloride (Sodium Chloride 0.9%) 1,000 mls @ 75 mls/hr IV .[id number] [facility] Last Admin: 02/22/20 03:01 Dose: 75 mls/hr Documented by: Metoprolol Tartrate (Lopressor) 25 mg PO DAILY [facility] Last Admin: 02/23/20 10:15 Dose: 25 mg Documented by: Nitroglycerin (Nitrostat) 0.4 mg SUBLINGUAL Q5M PRN PRN Reason: CHEST PAIN Last Admin: 02/21/20 22:05 Dose: 1 tab Documented by: Nitroglycerin (Nitrostat) 0.4 mg SUBLINGUAL Q5M PRN PRN Reason: CHEST PAIN Stop: 02/24/20 06:11 Ondansetron HCl (Zofran) 4 mg IVP Q8H PRN PRN Reason: vomiting, or N/V if npo Ondansetron HCl (Zofran) 4 mg IVP Q2M PRN PRN Reason: NAUSEA Sertraline HCl (Zoloft) 50 mg PO DAILY [facility] Last Admin: 02/23/20 10:15 Dose: 50 mg Documented by: Topiramate (Topamax) 50 mg PO TID [facility] Last Admin: 02/23/20 10:14 Dose: 50 mg Documented by: Trazodone HCl (Desyrel) 150 mg PO BEDTIME [facility] Last Admin: 02/22/20 21:25 Dose: 150 mg Documented by: Vitals/I&O/Wt Last Vital Signs Temp 98.8 F 02/23/20 11:47 Pulse 67 02/23/20 11:56 Resp 16 02/23/20 11:56 BP 105/63 02/23/20 11:47 Pulse Ox 97 02/23/20 11:56 02/22/20 02/23/20 02/23/20 22:59 06:59 14:59 Intake Total 480 / 1680 480 / 2160 700 / 700 Balance 480 / -170 480 / 310 700 / 700 Weight last 48 hrs Weight 240 lb Physical Exam Narrative: EXAM NARRATIVE: GENERAL: The patient is alert and oriented times three. Not in any acute distress. HEENT: No significant pallor, icterus or lymphadenopathy. NECK: Trachea appears to be central. No masses noted. No JVD or thyromegaly appreciated. Carotid bruit on the left side. RESPIRATORY: Chest is symmetrical. No intercostals muscle retraction or any accessory muscle activation. Minimal tenderness in the left inframammary region.. Breath sounds are heard bilaterally. No rales or rhonchi heard. No evidence of any consolidation. BREASTS: Deferred. HEART: Heart sounds are normal no S3 or S4. Short systolic murmur in the left sternal border. No diastolic murmurs. ABDOMEN: No vessel pulsations or distention. No tenderness. No organomegaly appreciated. No abdominal bruit. Bowel sounds are normally heard. : Deferred. RECTAL: Deferred. LYMPHATIC: No lymphadenopathy noted in the neck or groin. EXTREMITIES: No edema or cyanosis MUSCULOSKELETAL: Gait is normal. There is no joint deformity or swelling noted. No joint tenderness or any effusion. The shoulder and hip joints appear to have normal range of motion. SKIN: There are no significant scars or skin rash noted. NEUROPSYCHIATRIC: The patient is alert and oriented x3. Appears to be in a good mood. The higher functions are grossly within normal limits. No tremors or rigidity noted. Data : 02/23/20 05:15 02/23/20 05:15 Other Labs: Myocardial perfusion imaging results from today 1. Myocardial perfusion may revealing a small area of reversible defect in the mid inferolateral region, suggestive of ischemia in the distribution of the left circumflex artery. 2. Normal LV ejection fraction of 77%. 3. LV wall motion analysis revealing no gross wall motion normalities. 4. Normal LV volume. Slightly elevated transient ischemic dilatation ratio of 1.16 also may suggest endocardial ischemia. Because of the inconsistency with the prone imaging, the reliability of the above finding is somewhat questionable A&P Assessment and plan (1) Atypical chest pain: Discussed with the patient, the implications of the test findings. Patient chest pain most likely is noncardiac. Since area of ischemia is small and inconsistent, it also be appropriate to optimize her medical treatment at this time. If he continues to have the chest pain, we may consider doing a cardiac catheterization to further evaluate the coronary status and decide on further management. Status: Acute (2) ISI (acute kidney injury): Etiology is unclear. Possibly related to nonsteroidal use. The creatinine seems to be coming down. Status: Resolved (3) Aortic ectasia, abdominal: Patient is asymptomatic and probably reasons require any specific intervention at this point. Status: Acute (4) Hypertension: Currently normotensive. May continue on the current medications. Status: Acute Qualifiers: Hypertension type: essential hypertension Qualified Code(s): I10 - Essential (primary) hypertension (5) Hyperlipidemia: May continue on the current medications. Status: Acute Qualifiers: Hyperlipidemia type: mixed hyperlipidemia Qualified Code(s): E78.2 - Mixed hyperlipidemia (6) Aortic regurgitation: The aortic regurgitation was found to be mild. May not require any specific intervention at this point. Continue on the current measures. Status: Acute Qualifiers: Cardiac valve disease etiology: nonrheumatic Qualified Code(s): I35.1 - Nonrheumatic aortic (valve) insufficiency (7) Carotid artery stenosis: Carotid Doppler examination was performed. I will be reviewing this. Status: Acute Qualifiers: Laterality: bilateral Qualified Code(s): I65.23 - Occlusion and stenosis of bilateral carotid arteries Additional A&P Information If the patient continues remain stable, may be discharge home today. I may see him in the clinic in 3 weeks. In the event of the patient develop any chest pain, palpitation or any new symptoms, advised to contact our office or come back to the hospital. Attestations Medical Necessity Statement*: Possible discharge home today Coding Level of Care Code Acute Vamp Liner for Chg Fwd Diagnoses Atypical chest pain R07.89 ISI (acute kidney injury) N17.9 Aortic ectasia, abdominal I77.811 Hypertension I10 Hypertension type: essential hypertension Hyperlipidemia E78.2 Hyperlipidemia type: mixed hyperlipidemia Aortic regurgitation I35.1 Cardiac valve disease etiology: nonrheumatic Carotid artery stenosis I65.23 Laterality: bilateral
--- NOTE | 2020-02-23 13:46 | PM.DCS ---
Discharge Providers Date of Admission: 02/22/20 01:43 Date of Discharge: February 23, 2020 Attending Provider at Admission: Vinay Augustine MD Attending Provider at Discharge: Jose Raul Guillaume Primary Care Provider: Harley Lewis DO Diagnoses at Discharge Discharge Diagnosis (1) Atypical chest pain: Status: Acute (2) ISI (acute kidney injury): Status: Acute (3) Hypertension: Status: Acute Qualifiers: Hypertension type: essential hypertension Qualified Code(s): I10 - Essential (primary) hypertension (4) Hyperlipidemia: Status: Acute Qualifiers: Hyperlipidemia type: mixed hyperlipidemia Qualified Code(s): E78.2 - Mixed hyperlipidemia (5) Aortic regurgitation: Status: Acute Qualifiers: Cardiac valve disease etiology: nonrheumatic Qualified Code(s): I35.1 - Nonrheumatic aortic (valve) insufficiency (6) Carotid artery stenosis: Status: Acute Qualifiers: Laterality: bilateral Qualified Code(s): I65.23 - Occlusion and stenosis of bilateral carotid arteries (7) Aortic ectasia, abdominal: Status: Acute Reason for Visit Reason for Visit: reina, jorge Hospital Course Hospital Course: This very pleasant 65-year-old gentleman was placed in observation after presenting with chest pain, left-sided, atypical symptoms, made worse by deep inspiration. He denies any recent injury, strenuous activity or cough. He later recalled that he has had some rib injury in the past, although no fractures were noted on imaging. VQ scan was performed at presentation to exclude PE, and was negative. CT chest abdomen pelvis was performed, and a number of incidental findings were noted, including small area of atelectasis or scarring noted in left lower lobe. Benign calcified granuloma in the right middle lobe. CT abdomen pelvis without acute findings, with moderate degenerative disease of lumbar spine. Noninflamed diverticulum in the proximal duodenum. Healed granulomas in the spleen. Atherosclerosis of aorta. Other incidental findings. Incentive spirometry was provided for him in the hospital. Due to persistent pain, risk factors of coronary disease concern was for unstable angina initially and cardiology was consulted. Troponin series were unremarkable. EKG showed nonspecific ST changes. Echocardiogram showed normal ejection fraction, grade 1 diastolic dysfunction. He underwent additional assessment by stress testing with finding of small area of reversible defect in mid inferolateral region suggestive of ischemia in distribution of left circumflex/artery on supine imaging. 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 Due to suspicion of underlying coronary disease at this time continue current CAD medications. Recommendation is to follow-up with cardiology in office in 3 weeks. Based on atypical findings prescription with cardiology symptoms are still more likely related to either intercostal injury or possibly some degree of pleuritic discomfort. There is area as noted of atelectasis or scarring in left lower lobe. Discussed with him to consider additional follow-up imaging in case there is no improvement in symptoms, although he does say he has already been feeling better. He is otherwise feeling well to be able to return home. Physical Exam Const: COMMON NORMALS: no acute distress and patient oriented x3 HENMT: COMMON NORMALS: oropharynx normal Neck/C-Spine: COMMON NORMALS: no JVD Resp: COMMON NORMALS: normal respiratory effort and clear to auscultation bilaterally AUSCULTATION: clear to auscultation bilaterally Cardio: COMMON NORMALS: no JVD, regular rhythm, S1 normal heart sound present, S2 normal heart sound present and No murmurs present (Cardio) RHYTHM: regular rhythm HEART SOUNDS: S1 normal heart sound present and S2 normal heart sound present GI: COMMON NORMALS: Normal to inspection, nondistended, normoactive bowel sounds present, Soft to palpation and non-tender PALPATION: Yes Soft to palpation Extremity: COMMON NORMALS: no joint enlargement and no pedal edema Neuro: COMMON NORMALS: patient oriented x3 and moves all extremities Skin: COMMON NORMALS: no rashes or lesions noted GENERAL SKIN EXAM: no rashes or lesions noted Discharge Data Data Completed and Pending: Completed Studies During Hospitalization Category Date Time Status CT chest abd pel wo con Stat Cat Scan 02/21/20 22:23 Completed Sestamibi Stress Test Request Routi ne Exams 02/23/20 06:00 Draft XR chest 1V jluis ble [id number] Stat Exams 02/21/20 22:14 Completed XR ribs LT 2V* 71 100 Routine Exams 02/22/20 11:31 Completed NM merced perf SPECT r/s* [id number] Routin e Nuc Med 02/23/20 Completed NM pul vent and p erfus* [id number] Stat Nuc Med 02/21/20 22:31 Completed CV echo complete* [id number] Urgent Ultrasound 02/22/20 06:06 Completed Pending at discharge Category Date Time Status Sestamibi Stress Test Request Routi ne Exams 02/23/20 08:00 Ordered Sestamibi Stress Test Request Stat Exams 02/22/20 06:00 Stop Req Complete Blood Co unt w/Auto AM LABS Lab 02/24/20 04:00 Ordered Complete Blood Co unt w/Auto AM LABS Lab 02/25/20 04:00 Ordered Comprehensive Met abolic Panel AM LA BS Lab 02/24/20 04:00 Ordered Comprehensive Met abolic Panel AM LA BS Lab 02/25/20 04:00 Ordered Magnesium AM LABS Lab 02/24/20 04:00 Ordered Magnesium AM LABS Lab 02/25/20 04:00 Ordered Phosphorus AM LAB S Lab 02/24/20 04:00 Ordered Phosphorus AM LAB S Lab 02/25/20 04:00 Ordered CV carotid duplex BI* [id number] Routine Ultrasound 02/22/20 09:24 Taken Labs from last 24 hours 02/23/20 02/23/20 02/22/20 05:15 05:15 13:05 WBC 5.6 RBC 3.94 L Hgb 12.6 Hct 38.6 L MCV 98.0 H MCH 32.0 MCHC 32.6 RDW 12.9 Plt Count 122 L MPV 10.0 Neut % (Auto) 57.2 Lymph % (Auto) 23.6 [place] % (Auto) 13.7 Eos % (Auto) 4.4 Baso % (Auto) 0.7 Neut # (Auto) 3.23 Lymph # (Auto) 1.3 [place] # (Auto) 0.8 Eos # (Auto) 0.3 Baso # (Auto) 0.0 Nucleated RBC % (a uto) 0 Nucleated RBCs # 0.0 Sodium 141 140 Potassium 3.8 3.9 Chloride 113 H 107 Carbon Dioxide 16 L 23 Anion Gap 15.8 13.9 BUN 14 16 Creatinine 1.4 H 1.6 H GFR Calculation 51.0 L 43.7 L Glucose 93 93 Calculated Osmolal ity 292 291 Calcium 8.7 9.0 Phosphorus 2.6 Magnesium 2.3 Total Bilirubin 0.5 AST 10 ALT 9 Alkaline Phosphata se 58 Total Protein 5.6 L Albumin 3.1 L Globulin 2.5 Vitals: Last Vital Signs Temp 98.8 F 02/23/20 11:47 Pulse 67 02/23/20 11:56 Resp 16 02/23/20 11:56 BP 105/63 02/23/20 11:47 Pulse Ox 97 10/08/20 11:56 Discharge Plan Discharge Patient Disposition: Home Condition: Stable Prescriptions: Continued sertraline [Zoloft] 50 mg tablet 50 mg PO DAILY Qty: 90 RF: 1 trazodone 150 mg tablet 150 mg PO .at bed Qty: 90 RF: 1 metoprolol tartrate 25 mg tablet 25 mg PO DAILY RF: 0 nitroglycerin [Nitrostat] 0.4 mg tablet, sublingual 0.4 mg SUBLINGUAL Q5M PRN (Reason: Chest Pain) RF: 0 multivitamin [Multiple Vitamins] Tablet 1 tab PO DAILY RF: 0 aspirin [Adult Aspirin Regimen] 81 mg tablet,delayed release (DR/EC) 81 mg PO DAILY RF: 0 topiramate [Topamax] 50 mg tablet 150 mg PO DAILY RF: 0 atorvastatin 20 mg tablet 20 mg PO DAILY RF: 0 hydroxyzine HCl 50 mg Tablet 50 mg PO BID PRN (Reason: Anxiety) RF: 0 Discontinued naproxen sodium 220 mg tablet 440 mg PO DAILY RF: 0 Discharge Orders: Discharge Order (Routine); Ordered 02/23/20 Ordered By: Jose Raul Guillaume Referrals: Blaine Longo MD [Physician] - (3 weeks) Harley Lewis DO [Primary Care Provider] - 4-7 days Discharge Diet: Cardiac Discharge Activity: Increase activity as tolerated Activity Restrictions/Additional Instructions: Please avoid any NSAIDs as they can lead to kidney injury. Your kidney function has been improving after kidney 3. Creatinine is down to 1.4. Please note that there is a small area of abnormality on your stress test in the inferolateral region suggesting that that small area may not be getting good perfusion, and suggest perhaps underlying coronary disease. At this time recommendation was for optimization of medical management. Please continue aspirin, cluster medication, Toprol, take nitroglycerin as needed if you develop chest pain. Current episodes of chest pain are thought to be related due to musculoskeletal injury, perhaps intercostal injury. No fracture was seen on x-ray, and no lung abnormality seen on CT scan, although small area of atelectasis or scarring is seen in left lower lobe, perhaps may be contributing to her symptoms. Small benign calcified granuloma is seen in the right middle lobe. Please discuss with your primary care provider. In case your symptoms do not resolve, consider additional repeat imaging with chest CT. Please continue incentive spirometry at home. If you need something to treat pain, please take Tylenol, please avoid NSAIDs. If you experience worsening or persistent pain, any shortness of breath, fainting, or any other abnormal symptoms, please seek medical attention without delay. Discharge Attestations Time Spent in Discharge Care*: greater than 30 min Quality Metrics Clinical Quality Measures During this hospital stay, did patient experience: None Coding Level of Care Code Acute Telephone Order Supervisor for Chg Fwd Diagnoses Atypical chest pain R07.89 ISI (acute kidney injury) N17.9 Hypertension I10 Hypertension type: essential hypertension Hyperlipidemia E78.2 Hyperlipidemia type: mixed hyperlipidemia Aortic regurgitation I35.1 Cardiac valve disease etiology: nonrheumatic Carotid artery stenosis I65.23 Laterality: bilateral Aortic ectasia, abdominal I77.811
[2020-02-23 16:10] VITALS: PULSE 67; RESP 16; O2SAT 97
== END 2020-02-23 15:45 | disposition home or self-care (01) ==
LOC: ER 02-22 00:11 → MEDSURG 02-22 01:47
PROVIDERS: Emergency Medicine; Admitting Provider Family Medicine; PCP Family Medicine; Visit Provider Internal Medicine
DX: I25.110 Atherosclerotic heart disease of native coronary artery with unstable angina pectoris (principal); I71.4 Abdominal aortic aneurysm, without rupture; I10 Essential (primary) hypertension; E78.2 Mixed hyperlipidemia; I35.1 Nonrheumatic aortic (valve) insufficiency; N17.9 Acute kidney failure, unspecified; F17.210 Nicotine dependence, cigarettes, uncomplicated; Z82.49 Family history of ischemic heart disease and other diseases of the circulatory system; Z79.82 Long term (current) use of aspirin; I65.23 Occlusion and stenosis of bilateral carotid arteries; R07.89 Other chest pain; I77.811 Abdominal aortic ectasia; F33.9 Major depressive disorder, recurrent, unspecified
CPT/HCPCS: 12345; 36415; 71045; 71100; 71250; 74176; 78014; 78452; 80048; 80053; 83690; 83735; 84100; 84484; 85025; 85378; 85610; 85651; 86140; 93005; 93017; 93306; 93880; 96361; 96372; 96374; 96375; 96376; 99283; 99285; A9500; A9540; A9567; G0378; J1170; J1650; J2270; J2405; J2785; J7030; J7040

== ENCOUNTER → 2020-08-08 08:01 | Outpatient (BNVA) | payer OTHER, MEDICARE, SELFPAY | PROVIDERS: PCP Family Medicine; Visit Provider Nurse Practitioner | DX: F33.2 Major depressive disorder, recurrent severe without psychotic features (principal) | CPT/HCPCS: 99214 ==

== ENCOUNTER → 2020-12-20 11:04 | Outpatient (BNVA) | payer OTHER, MEDICARE, SELFPAY | PROVIDERS: PCP Family Medicine; Visit Provider Internal Medicine Cardiovascular Disease | DX: E78.2 Mixed hyperlipidemia (principal) | CPT/HCPCS: 80061 ==

== ENCOUNTER → 2021-06-24 08:25 | Outpatient (BNVA) | payer OTHER, MEDICARE, SELFPAY | PROVIDERS: PCP Family Medicine; Visit Provider Internal Medicine Cardiovascular Disease | DX: E78.5 Hyperlipidemia, unspecified (principal) | CPT/HCPCS: 80061 ==

== ENCOUNTER → 2022-01-22 14:35 | Outpatient (BNVA) | payer OTHER, MEDICARE, SELFPAY | PROVIDERS: PCP Family Medicine; Visit Provider Family Medicine | DX: Z00.00 Encounter for general adult medical examination without abnormal findings (principal); B34.9 Viral infection, unspecified; I25.10 Atherosclerotic heart disease of native coronary artery without angina pectoris; I10 Essential (primary) hypertension; E78.2 Mixed hyperlipidemia | CPT/HCPCS: 80053; 80061 ==

== ENCOUNTER → 2022-09-23 12:46 | Outpatient (BNVA) | payer OTHER, MEDICARE, SELFPAY | PROVIDERS: PCP Family Medicine; Visit Provider Family Medicine | DX: E78.5 Hyperlipidemia, unspecified (principal); I10 Essential (primary) hypertension; F33.2 Major depressive disorder, recurrent severe without psychotic features; E78.2 Mixed hyperlipidemia | CPT/HCPCS: 80053; 80061 ==

== ENCOUNTER → 2023-09-24 09:52 | Outpatient (BNVA) | payer MEDICARE, OTHER, SELFPAY | PROVIDERS: PCP Family Medicine; Visit Provider Family Medicine | DX: I10 Essential (primary) hypertension (principal); I25.10 Atherosclerotic heart disease of native coronary artery without angina pectoris; R04.2 Hemoptysis; Z13.6 Encounter for screening for cardiovascular disorders; M54.9 Dorsalgia, unspecified; F41.9 Anxiety disorder, unspecified | CPT/HCPCS: 80053; 80061; 85025 ==

== ENCOUNTER 2023-10-06 08:39 | Outpatient (CLI) | payer MEDICARE, OTHER, SELFPAY ==
--- NOTE | 2023-10-06 08:53 | CT_ITS ---
WS: [id number] CT chest w con* [id number] HISTORY: R04.2 - Hemoptysis TECHNIQUE: Axial imaging performed through the thorax. Coronal and sagittal reformats are submitted. All CT scans at [facility] use at least one of these dose optimization techniques: automated exposure control; mA and/or kV adjustment per patient size (includes targeted exams where dose is mat ched to clinical indication); or iterative reconstruction. CONTRAST: Omnipaque 350; 100 mL IV. DLP: 574.02 mGy.cm COMPARISON: 02/21/2020 Lungs and central airway: Soft tissue nodule measuring 11 mm abuts the LEFT anterior junctional line. There is a additional hazy attenuation and nodularity in the anterior LEFT upper lobe. There is comp lete obstruction of the LEFT upper lobe pulmonary artery secondary to PE. There is a single round def ect in the distal SVC which is indeterminate for thrombus. This may be intermixing of blood. There is mild pleural thickening at the LEFT lung base. Pleura: Mild pleural thickening at the LEFT lung base. Heart and pericardium: Normal size heart with no pericardial effusion. Mediastinum and ky: Small lymphoid tissue at the hilar regions. No enlarged lymph nodes. Vessels: Filling defects from pulmonary emboli in segmental branch of the LEFT upper lobe. Chest wall and lower neck: No soft tissue masses. Upper abdomen: No adrenal mass. Visualized upper abdomen is normal. Osseous structures: No destructive process. CT/CT chest w con* [id number] IMPRESSION: 1. Filling defect segmental branch LEFT upper lobe pulmonary artery consistent with PE. 2. Soft tissue nodule abutting the LEFT anterior junctional line measuring 11 mm needs to be further evaluated for neoplasm. Additional areas of reticular no dular opacification in the LEFT upper lobe may be pneumonitis or associated wit h the pulmonary emboli and pulmonary infarct. Both of these findings need to be further evaluated. Consider follow-up PET/CT imaging to evaluate the nodule al vita the junctional line. 3. No mediastinal or hilar adenopathy. 4. Mild pleural thickening at the LEFT lung base. Pleural thickening was also noted on the CT from 2019. Notified Harley Lewis DO at 10/06/2023 9:48 AM.
[2023-10-06] MEDS: iohexol 350 mg/mL 500 mL Btl (per mL) IV (09:17)
== END 2023-10-06 08:40 | disposition home or self-care (01) ==
LOC: RAD 08:39
PROVIDERS: PCP Family Medicine; Visit Provider Family Medicine
DX: R04.2 Hemoptysis (principal); R91.8 Other nonspecific abnormal finding of lung field; I28.8 Other diseases of pulmonary vessels; J92.9 Pleural plaque without asbestos
CPT/HCPCS: 71260; Q9967

== ENCOUNTER 2024-01-20 10:25 | Outpatient (CLI) | payer MEDICARE, OTHER, SELFPAY ==
--- NOTE | 2024-01-20 10:30 | CTR_ITS ---
PROCEDURE INFORMATION: Exam: CT Chest With Contrast; Diagnostic Exam date and time: 01/20/2024 11:00 AM Age: 68 years old Clinical indication: Condition or disease; Lung condition and disease; Pulmonary nodule, solitary; Additional info: R91.1 - solitary pulmonary nodule TECHNIQUE: Imaging protocol: Diagnostic computed tomography of the chest with contrast. Radiation optimization: All CT scans at this facility use at least one of these dose optimization techniques: automated exposure control; mA and/or kV adjustment per patient size (includes targeted exams where dose is matched to clinical indication); or iterative reconstruction. Contrast material: OMNI 350; Contrast volume: 100 ml; Contrast route: INTRAVENOUS (IV); COMPARISON: 1. CT chest w con* [id number] 10/06/2023 9:[address] [place] [id number] 02/21/2020 10:48 PM RADIATION DOSE METRICS: Total DLP (mGy-cm): 613.41 FINDINGS: Lungs: Calcified granuloma in the right middle lobe. Stable small focus of linear scar in the posteroinferior left lower lobe. Stable 2 mm nodule in the posterior right upper lobe (series 4, image 23). Stable 3.0 cm subpleural density in the posteroinferior left lower lobe. The previous patchy opacities in the anterior left upper lobe have resolved. No new findings. Pleural spaces: Unremarkable. No pneumothorax. No pleural effusion. Heart: Unremarkable. No cardiomegaly. No pericardial effusion. Lymph nodes: Calcified mediastinal lymph node. No enlarged lymph nodes. Vasculature: Well opacified with contrast. No filling defects visualized. Bones/joints: Mild degenerative changes in the spine. Old T11 spinous process fracture. Old left rib fractures. No acute fracture. Soft tissues: Clip in the left axilla. CT/CT chest w con* [id number] IMPRESSION: 1. Complete resolution of the previous opacities in the anterior left upper lobe. 2. Stable nodules and regions of subpleural scarring in both lungs. These have been stable since 02/21/2020 and are considered benign.
[2024-01-20 11:02] LABS: Blood Urea Nitrogen 12 mg/dL (8-23); Glomerular Filtration Rate 46.7 mL/min (90-130)
[2024-01-20] MEDS: iohexol 350 mg/mL 500 mL Btl (per mL) IV (11:10)
== END 2024-01-20 10:26 | disposition home or self-care (01) ==
LOC: RAD 10:26
PROVIDERS: PCP Family Medicine; Visit Provider Family Medicine
DX: R91.8 Other nonspecific abnormal finding of lung field (principal); Z79.01 Long term (current) use of anticoagulants; J84.10 Pulmonary fibrosis, unspecified
CPT/HCPCS: 71260; 82565; 84520

== ENCOUNTER → 2024-09-19 10:06 | Outpatient (BNVA) | payer MEDICARE, OTHER, SELFPAY | PROVIDERS: PCP Family Medicine; Visit Provider Family Medicine | DX: Z00.00 Encounter for general adult medical examination without abnormal findings (principal); I10 Essential (primary) hypertension; I25.10 Atherosclerotic heart disease of native coronary artery without angina pectoris; E78.2 Mixed hyperlipidemia; N52.9 Male erectile dysfunction, unspecified | CPT/HCPCS: 80053; 80061 ==

== ENCOUNTER → 2024-11-14 10:43 | Outpatient (BNVA) | payer MEDICARE, OTHER, SELFPAY | PROVIDERS: PCP Family Medicine; Visit Provider Family Medicine | DX: I10 Essential (primary) hypertension (principal) | CPT/HCPCS: 80048 ==